=== PATIENT | female | born 1965 | race Caucasian/White ===

== ENCOUNTER → 2024-03-08 | Outpatient (CLI) | payer MEDICAID, SELFPAY ==
--- NOTE | 2024-03-08 14:00 | XR_ITS ---
Examination: Breast ultrasound, unilateral, left complete Date and time of exam: March 08, 2024 1354 hours INDICATIONS: Mammogram April 21, 2023 8 mm focal asymmetry upper outer left breast Technique: Real-time perry scale ultrasonographic imaging performed left breast including all 4 quadrants as well as nipple retroareolar and axillary region. Findings: 1:00 oval mass circumscribed hyperechoic 8 x 5 x 7 mm Retroareolar cyst 5 x 3 x 4 mm IMPRESSION: BI-RADS Category 3: Probably benign findings One additional 6 month left breast sonogram follow-up is needed to document stability of 1:00 nodule described above
--- NOTE | 2024-03-08 14:30 | XR_ITS ---
Examination: Diagnostic digital mammography, unilateral, left Computer aided detection 3-D breast Tomosynthesis, unilateral Date and time of exam: March 08, 2024 1413 hours INDICATIONS: Mammogram June 24, 2023 2:00 nodule left breast, 5 mm nodule retroareolar region left breast Technique: Nonmagnified MLO, CC views of the left breast have been obtained, reconstructed from 3-D Tomosynthesis images. R2 computer aided detection program utilized for evaluation of suspicious masses and/or abnormal calcifications. 3-D Tomosynthesis images obtained. Findings: Scattered areas of fibroglandular density Circumscribed 4 mm retroareolar nodule corresponds to retroareolar cyst described in ultrasound study today 1:00 nodule is noted in the upper outer left breast probably benign Impression: BI-RADS category 3: Probably benign findings One additional 6 month left mammogram follow-up is needed to document stability of 1:00 nodule left breast
== END | disposition home or self-care (01) ==
PROVIDERS: PCP Nurse Practitioner Family; Referring Provider Nurse Practitioner Family; Visit Provider Nurse Practitioner Family
DX: R92.332 Mammographic heterogeneous density, left breast (principal); N63.21 Unspecified lump in the left breast, upper outer quadrant; N60.02 Solitary cyst of left breast
CPT/HCPCS: 76641; 77061; 77065; G0279

== ENCOUNTER → 2024-03-12 | Outpatient (CLI) | payer MEDICAID, SELFPAY ==
[2024-03-12 11:09] LABS: Alanine Aminotransferase 17 U/L (10-49); Albumin, Serum 4.4 gm/dL (3.4-4.8); Alkaline Phosphatase 99 U/L (46-116); Anion Gap 7 (7-16); Aspartate Amino Transferase 17 U/L (0-34); BUN/Creatinine Ratio 19 Ratio (12-20); Bilirubin,Total 0.4 mg/dL (0.3-1.2); Blood Urea Nitrogen 15 mg/dL (9-23); Calcium 9.9 mg/dL (8.3-10.6); Calcium (Corrected) 9.9 mg/dL (8.5-10.1); Carbon Dioxide 29.9 mMol/L (20.0-31.0); Chloride 103 mMol/L (98-107); Creatinine (Component) 0.8 mg/dL (0.6-1.3); Globulin 2.2 gm/dL (2.3-3.5); Glucose 104 mg/dL (74-106); Osmolality,Calculated 280 (275-295); Potassium 4.4 mMol/L (3.4-5.1); Sodium 140 mMol/L (136-145); Total Protein 6.6 gm/dL (5.7-8.2); eGFR > 60 See Note
--- NOTE | 2024-03-12 11:30 | XR_ITS ---
Examination: CT abdomen with intravenous contrast CT pelvis with intravenous contrast 2-D coronal reconstructions 2-D sagittal reconstructions Date and time of exam:March 12, 2024 1213 hours Comparison March 08, 2023 INDICATIONS: Diagnosis localized swelling mass lump in the abdomen, liver lump 2 years, 5.6 cm low-density right lobe liver lesion on abdomen and pelvis without contrast March 08, 2023. CTDI: vol (mGy) 7.1 DLP: (mGycm) 341 Technique: Multiple axial sections of the abdomen and pelvis have been obtained. 64 slice high-resolution scanner used. 3 mm axial sections have been obtained, post intravenous injection 60 cc [id number] 2-D sagittal, coronal reconstructions obtained. Low dose protocols were performed. One or more of the following dose reduction techniques were used; automated exposure control, adjustment of the mA and/or KV according to patient size, use of iterative reconstruction technique. Findings: 5 cm mass with peripheral nodular enhancement posterior right lobe liver most consistent with hemangioma Diffuse fatty infiltration throughout the liver 27 mm partially cystic mass contiguous with the left lobe liver with internal echogenicity, recommend hepatic sonography follow-up Spleen is not enlarged No hydronephrosis Aorta normal size Normal appendix No bowel obstruction No pelvic mass Bladder intact Advanced disc narrowing L4-L5 IMPRESSION: Large hemangioma posterior right lobe the liver Recommend repeat hepatic sonography specific attention to the left lobe of the liver to assess exophytic cystic mass off the left lobe of the liver 27 mm
== END | disposition home or self-care (01) ==
PROVIDERS: Referring Provider Nurse Practitioner Family; Visit Provider Nurse Practitioner Family
DX: D18.09 Hemangioma of other sites (principal); Z01.812 Encounter for preprocedural laboratory examination
CPT/HCPCS: 36415; 74177; 80053; A4649; Q9967

== ENCOUNTER → 2024-03-19 | Outpatient (BNVA) | payer MEDICAID, SELFPAY | END | disposition home or self-care (01) | PROVIDERS: PCP Nurse Practitioner Family; Referring Provider Nurse Practitioner Family; Visit Provider Nurse Practitioner Family | DX: Z71.2 Person consulting for explanation of examination or test findings (principal); L02.211 Cutaneous abscess of abdominal wall; R92.8 Other abnormal and inconclusive findings on diagnostic imaging of breast; D18.09 Hemangioma of other sites | CPT/HCPCS: 99214 ==